=== PATIENT | female | born 1955 | race Caucasian/White ===

== ENCOUNTER 2024-12-30 09:30 | Outpatient (RCR) | payer MEDICARE, SELFPAY ==
--- NOTE | 2024-12-04 17:23 | PTOPEVAL1 ---
Assessment and note entered by Anastasia Vega, PT Evaluation Information Assessment Status Evaluation Diagnosis Arthritis (M19.90), Pain in R hip, Chronic pain R knee and groin ICD-10 Condition Codes (PT) Pain in right hip M25.551,Pain in right knee M25. 561,Abnormalities of gait and mobility R26.9, Weakness R53.1 Other ICD-10 Condition Codes ( G89.29 Chronic pain, Instability R knee PT) Subjective Information Oct 29 2024, had stiffness in right groin and shooting pain November 10 strated feeling hip tenderness at outer hip similar to when had sciatica in left hip area (2009) injection resolved it. Was a familiar feeling. Was having trouble putting weight thorugh LE Started having pain around knee cap and now into joint since November 13 Today in gym reverse lunge had increased pain in the right hip. Standing leaning back will feel pull in right inner thigh Has had RLS RLE 7 years and rarely in [facility] knee medial knee hx of irritation Had been taking meloxicam for 2 weeks November 18-. Feels better in the hip and groin but nothing improved for the knee. Sitting and resting knee propped improves discomfort. Has continued her cardio and strength class UEs and LEs but was told not to jump by PCP Reported Pain Level Pain Score 0,0,0: Self Report Assessment PT Clinical Summary Pt presents with knee, groin, and hip pain in the RLE. Special testing of the RLE shows increased knee ligament laxity, possible pelvic alignment issue coupled with leg length discrepancy, and inappropriate muscle activation patterns with activities at times such as sit<>stands. Pt is highly invested in knowing her diagnosis and participating in therapy and spent a significant amount of time in discussion with therapist related to findings, diagnosis, and future possible deficits. Pt will benefit from physical therapy to continue to educate patient, address deficits, and decrease pain to return to PLOF. Plan of Care Interventions Electrical Stimulation,Hot Pack/Cold Pack,Manual Therapy,Neuro Re-education,Patient/Caregiver Education,Therapeutic Activities,Therapeutic Exercise,Self-Care/Home Management,Ultrasound, Other Other Interventions Taping, bracing PT Services Indicated Yes Treatment Frequency and 1-2x weekly x 16 visits Duration These treatments will address the objective and functional deficits as defined above. The patient will be advanced safely and appropriately in order for the patient to progress towards his/her prior level of function. Additional exercises will be introduced and as well as a comprehensive home exercise program upon discharge, if needed, ?to ensure carryover of functional gains achieved in the clinic. This treatment plan has been reviewed and agreement upon by the patient.
--- NOTE | 2024-12-04 17:23 | OPREHPOC ---
Outpatient Therapy Plan of Care This is a Multidisciplinary Plan of Care that may contain components documented by all disciplines (PT, OT, and ST.) PT Problem 1 PT Problem #1 Knowledge Deficit PT Goal 1 Goal / Goal Update Pt will be independent in HEP Pt will verbalize understanding of diagnosis and prognosis PT Problem 2 PT Problem #2 Pain PT Goal 1 Goal / Goal Update Pt will report greatest pain level at 3/10 in most recent 2 weeks. Target Visit 8 PT Goal 2 Goal / Goal Update Pt will report resolution of pain with activities to return to PLOF. Target Visit 16 PT Problem 3 PT Problem #3 Impaired Functional Mobility PT Goal 1 Goal / Goal Update Pt will return to full exercise regiment including jumping activities without pain to meet her fitness goals. Target Visit 16
--- NOTE | 2024-12-30 16:55 | PTOPDC ---
Assessment and note entered by Anastasia Vega, PT Evaluation Information Assessment Status Discharge Diagnosis Arthritis (M19.90), Pain in R hip, Chronic pain R knee and groin ICD-10 Condition Codes (PT) Pain in right hip M25.551,Pain in right knee M25. 561,Abnormalities of gait and mobility R26.9, Weakness R53.1 Other ICD-10 Condition Codes ( G89.29 Chronic pain, Instability R knee PT) Subjective Information Groin and hip pain are doing better. Had a little pull this morning in the groin but was less intense and is less often. Tenderness in outer hip only with pressing on it at 3/10 intensity Has been able to stand longer on the knee without moving. Not an hour but likely 20 minutes without issue. Hasn't gotten much exercise lately, but walked to the [employer] last night and felt a little something reported as a 7/10 in the outer knee cap. But once got there didn't feel it any more. General daily movements don't cause pain above a 2-3/10 Reported Pain Level Pain Score 0,0,2: Self Report Assessment PT Clinical Summary Pt has attended therapy consistently for right hip , groin, and knee pain. She has progressed slightly in her reported pain intensity at worst levels on all body parts though she does also report less instances of intense discomfort. She shows improvement in her strength as well and reports improvement in function. Unfortunately she is unable to continue therapy at this time due to family requirements. With this in mind she was provided extensive education and information for progression independently including video on personal device and information regarding kinesiotaping, progression of HEP, and DME for leg length discrepancy. She has also been advised on when and how to return to therapy in the future if necessary. Thus she is being discharged per her request. Plan of Care PT Services Indicated No
== END 2025-01-01 09:17 | disposition home or self-care (01) ==
LOC: ANHHIPT 09:30
PROVIDERS: PCP Internal Medicine; Visit Provider Internal Medicine
DX: M19.90 Unspecified osteoarthritis, unspecified site (principal); M25.551 Pain in right hip; M25.561 Pain in right knee; G89.29 Other chronic pain; R10.31 Right lower quadrant pain
CPT/HCPCS: 97014; 97035; 97110; 97161; 97530; 97750; G0283